=== PATIENT | male | born 1970 ===

== ENCOUNTER 2016-11-06 10:23 | Emergency (ER) | payer OTHER ==
[2016-11-06 10:28] VITALS: BP 156/76; PULSE 75; TEMP 97; O2SAT 98; BMI 28.2
[2016-11-06 10:51] VITALS: RESP 19
[2016-11-06] MEDS ORDERED: Piperacillin/Tazobact 3.375 GM in Sodium Chloride 0.9% 100 ML IV STA (11:10)
--- NOTE | 2016-11-06 11:11 | ED PDOC ---
Lower Extremity Pain/Injury Time Seen by Provider: 11/06/16 10:52 Chief Complaint (Nursing): Trauma Chief Complaint (Provider): Foot pain History Per: Patient Additional Complaint(s): 45 yo male, no PMH, presents to ED with complaint sof right foot pain, swelling and redness, worsening over the last 3-4 days. Pt notes tactile fever last night. Pt reports that a piece of wood fell onto his foot 6 days ago. pt. is been self medicated himself w/ ampicillin that he has at home w/no relief. afebrile.at this time. Past Medical History Reviewed: Nursing Documentation, Vital Signs Vital Signs: Last Vital Signs Temp 97 F L 11/06/16 10:46 Pulse 75 11/06/16 10:46 Resp 19 11/06/16 10:46 BP 156/76 H 11/06/16 10:46 Pulse Ox 98 11/06/16 10:46 - Medical History PMH: No Chronic Diseases - Surgical History Surgical History: No Surg Hx - Family History Family History: States: No Known Family Hx - Living Arrangements Living Arrangements: With Family - Home Medications Home Medications: Ambulatory Orders Medication Instructions Recorded Amoxicillin/Clavulanate [Augmentin 1 tab PO BID #14 tab 11/06/16 875 MG-125 MG] - Allergies Allergies/Adverse Reactions: Allergies Allergy/AdvReac Type Severity Reaction Status Date / Time No Known Allergies Allergy Verified 11/06/16 10:46 Review of Systems ROS Statement: Except As Marked, All Systems Reviewed And Found Negative Musculoskeletal: Positive for: Foot Pain Skin: Positive for: Lesions Physical Exam - Reviewed Nursing Documentation Reviewed: Yes Vital Signs Reviewed: Yes - Physical Exam Appears: Positive for: Well, Non-toxic, No Acute Distress Head Exam: Positive for: ATRAUMATIC, NORMAL INSPECTION, NORMOCEPHALIC Skin: Positive for: Normal Color, Warm, DRY Eye Exam: Positive for: EOMI, Normal appearance, PERRL ENT: Positive for: Normal ENT Inspection Neck: Positive for: Normal, Painless ROM Cardiovascular/Chest: Positive for: Regular Rate, Rhythm Respiratory: Positive for: CNT, Normal Breath Sounds Gastrointestinal/Abdominal: Positive for: Normal Exam, Bowel Sounds, Soft Back: Positive for: Normal Inspection Extremity: Positive for: Normal ROM, Tenderness, Swelling, Other (Erythema with streaking noted. (+) puruelent material draining from scabbed over lesions between 3-4th digits. ) Neurologic/Psych: Positive for: Alert, Oriented - Laboratory Results Result Diagrams: 11/06/16 11:25 11/06/16 11:25 - ECG O2 Sat by Pulse Oximetry: 98 Medical Decision Making Medical Decision Making: IV access estblished and treatment initiated with IV Vanco and Zosyn after Cultures/diagnostics obtained. Foot XR: NAd, as read by LYNNETTE labs resulted and reviewed with Pt who demonstrated full understanding. Podiatry consult obtained, see note. Disposition - Clinical Impression Clinical Impression: Cellulitis - Patient ED Disposition Is Patient to be Admitted: No - Disposition Referrals: Provider TBD, [Primary Care Provider] - Podiatry Clinic [Outside] Disposition: Routine/Home Disposition Time: 15:35 Condition: STABLE Prescriptions: Amoxicillin/Clavulanate [Augmentin 875 MG-125 MG] 1 tab PO BID #14 tab Instructions: Cellulitis (ED)
[2016-11-06] MEDS ORDERED: Piperacillin/Tazobact 3.375 gm Inj IVPB ONE (11:14)
[2016-11-06] MEDS ORDERED: Vancomycin 1 g Inj ONE (11:15)
[2016-11-06 11:34] LABS: BASO % 0.7 % (0.0-2.0); EOS # 0.1 K/uL (0.0-0.7); EOS % 1.2 % (0.0-4.0); HEMATOCRIT 42.7 % (35.0-51.0); LYMPH # 1.7 K/uL (1.0-4.3); LYMPH % 24.9 % (20.0-40.0); MEAN CELL VOLUME 87.8 fl (80.0-94.0); MEAN CORPUSCULAR HEMOGLOBIN 29.6 pg (27.0-31.0); MEAN CORPUSCULAR HGB CONC 33.7 g/dL (33.0-37.0); MEAN PLATELET VOLUME 7.7 fl (7.2-11.7); MONO # 0.4 K/uL (0.0-0.8); MONO % 5.9 % (0.0-10.0); NEUT # 4.5 K/uL (1.8-7.0); NEUT % 67.3 % (50.0-75.0); RED CELL DISTRIBUTION WIDTH 13.6 % (11.5-14.5); WHITE BLOOD COUNT 6.7 K/uL (4.8-10.8)
--- NOTE | 2016-11-06 11:46 | CP.PCM.CON ---
History of Present Illness - History of Present Illness History of Present Illness: 45 y/o male seen at bedside in ED for an open lesion in 3rd interspace of the right foot. Pt states that the injury occured 4 days ago. Pt states that when he was working he dropped a 4x4 wood on his foot. Pt states that since then the pain and redness has increased. Pt states that his lesions is starting to worst overtime. Pt denies of taking any pain medications. Pt states that he took ampicilin from his but did not help him. Pt denies of any recent F/N/V/C/ SOB PMHx: None PSHx: None Allergies: N.K.D.A Medications: none SHx: no smoking, no OH use, no illicit drug use Review of Systems - Constitutional Constitutional: As Per HPI Past Patient History - Infectious Disease Hx of Infectious Diseases: None - Past Social History Smoking Status: Never Smoked - PSYCHIATRIC Hx Substance Use: No - SURGICAL HISTORY Hx Surgeries: Yes Meds Home Medications: Home Medication List Medication Instructions Recorded Confirmed Type Amoxicillin/Clavulanate [Augmentin 1 tab PO BID #14 tab 11/06/16 Rx 875 MG-125 MG] Allergies/Adverse Reactions: Allergies Allergy/AdvReac Type Severity Reaction Status Date / Time No Known Allergies Allergy Verified 11/06/16 10:46 - Medications Medications: Current Medications Vancomycin HCl 1 gm/ Sodium (Chloride) 250 mls @ 166.667 mls/hr IV STAT STA Stop: 11/06/16 12:39 Last Admin: 11/06/16 11:40 Dose: 166.667 mls/hr Piperacillin Sod/Tazobactam (Sod 3.375 gm/ Sodium Chloride) 100 mls @ 100 mls/ hr IV STAT STA Stop: 11/06/16 12:09 Physical Exam - Constitutional Appears: Well, Non-toxic, No Acute Distress - Extremities Exam Additional comments: Right foot focused: VASC: DP/PT pulses are palpable 2/4, Temp. gradient: warm to warm, [employer]: < 3 sec x 5, no varicosities, pedal hair present, mild non-pitting edema noted DERM: Open lesion on the medial aspect of the 4th digit extending in the 3rd interspace, Erythema on the dorsum of the foot extending proximally to the neck of the metatarsals, no malodor, purulent drainage noted from the lesion with mild sanguineous drainage, no probe to bone NEURO: Grossly intact ORTHO: pain upon palpation of the 3rd interspace, pt able to move his digits on active ROM with mild tenderness - Neurological Exam Neurological exam: Alert, Oriented x3 Results - Vital Signs Recent Vital Signs: Last Vital Signs Temp 97 F L 11/06/16 10:46 Pulse 75 11/06/16 10:46 Resp 19 11/06/16 10:46 BP 156/76 H 11/06/16 10:46 Pulse Ox 98 11/06/16 11:12 - Labs Result Diagrams: 11/06/16 11:25 11/06/16 11:25 Assessment & Plan - Assessment and Plan (Free Text) Assessment: 45 y/o male seen at bedside in ED for open lesion in the 3rd interspace of the right foot secondary to trauma with pedal cellulitis Plan: Pt evaluated and chart reviewed Pt discussed in details with attending Dr. Olivares X-rays, vitals and labs reviewed (pt is afebrile, WBC:6.7) Bedside drainage of the lesion performed - approx. 0.5 cc of pus expressed Wound bed copiously flushed with normal sterile saline Lesion dressed using betadine, gauze, and kurlix Pt tolerated the procedure well Surgical shoe dispensed and pt educated to wear while weightbearing to the R foot Rx: Augmentin 875mg-125mg PO BID Advised pt to changed dressing daily with gauze and to monitor for worsening of symptoms Advised pt to return to ED immediately should problems worsen Advised to f/u in podiatry clinic next week. - Date & Time Date: 11/06/16 Time: 12:00
[2016-11-06 11:53] LABS: ALKALINE PHOSPHATASE 120 U/L (38-126); ALT/SGPT 63 U/L (21-72); AST/SGOT 39 U/L (17-59); BILIRUBIN,TOTAL 0.7 mg/dl (0.2-1.3); BLOOD UREA NITROGEN 13 mg/dl (9-20); CALCIUM 9.5 mg/dL (8.4-10.2); CARBON DIOXIDE 25 mmol/L (22-30); CHLORIDE 104 mmol/L (98-107); GFR AFRICAN-AMERICAN > 60; GLUCOSE,RANDOM 99 mg/dL (75-110); SODIUM 140 mmol/l (132-148); TOTAL PROTEIN 8.8 G/DL (6.3-8.2)
[2016-11-06 11:54] LABS: ALB/GLOB RATIO 1.1 (1.0-2.1); POTASSIUM 4.7 MMOL/L (3.6-5.0)
[2016-11-06] MEDS ORDERED: Povidone Iodine Topical 10% Sol ONE (11:58)
--- NOTE | 2016-11-06 14:59 | RAD ---
PROCEDURE: Right Foot Radiographs. HISTORY: r/o osteo COMPARISON: None. FINDINGS: BONES: No radiographic findings of acute osteomyelitis. JOINTS: Normal. SOFT TISSUES: Stable tissue swelling 1st digit. OTHER FINDINGS: None. IMPRESSION: Soft tissue swelling without acute articular or osseous abnormality. There is no radiographic evidence of acute osteomyelitis.
== END 2016-11-06 14:36 | disposition home or self-care (01) ==
LOC: H.ER 10:23 → SUPCPDRO 10:23 → H.ER 14:36
DX: L03.115 Cellulitis of right lower limb (principal); W20.8XXA Other cause of strike by thrown, projected or falling object, initial encounter; Y93.9 Activity, unspecified

== ENCOUNTER 2017-07-12 06:50 | Emergency (ER) | payer OTHER ==
[2017-07-12 06:55] VITALS: BMI 28.1
[2017-07-12 07:26] VITALS: BP 120/65; PULSE 70; RESP 16; TEMP 98; O2SAT 97
--- NOTE | 2017-07-12 07:50 | ED PDOC ---
HPI: General Adult Time Seen by Provider: 07/12/17 07:12 Chief Complaint (Nursing): Abnormal Skin Integrity Chief Complaint (Provider): Bumps on Skull History Per: Patient History/Exam Limitations: no limitations Onset/Duration Of Symptoms: Other (x1 month) Have you had recent travel within the past 21 days to any of the following countries: [place], [place], [place] or [place]?: No Current Symptoms Are (Timing): Still Present Pain Scale Rating Of: 0 Additional Complaint(s): 46 year old male presents to the ED with bumps on his skull. The patient states that he has had these bumps for about 1 month or maybe longer. He reports that the bumps are not painful or itchy. Denies drainage. Denies any other medical problems. Patient reports that he has no primary care and therefore has not been able to see anyone for treatment of the bumps. Past Medical History Reviewed: Historical Data, Nursing Documentation, Vital Signs Vital Signs: Last Vital Signs Temp 98.0 F 07/12/17 07:00 Pulse 70 07/12/17 07:00 Resp 16 07/12/17 07:00 BP 120/65 07/12/17 07:00 Pulse Ox 97 07/12/17 07:55 - Medical History PMH: No Chronic Diseases - Surgical History Surgical History: No Surg Hx - Family History Family History: States: Unknown Family Hx - Social History Current smoker - smoking cessation education provided: No Ex-Smoker (has not smoked in the last 12 months): No Alcohol: None Drugs: Denies - Home Medications Home Medications: Ambulatory Orders Medication Instructions Recorded Amoxicillin/Clavulanate [Augmentin 1 tab PO BID #14 tab 11/06/16 875 MG-125 MG] Bacitracin/Neomycin/Polymyxin 1 oin TP BID #1 tube 07/12/17 [Triple Antibiotic] - Allergies Allergies/Adverse Reactions: Allergies Allergy/AdvReac Type Severity Reaction Status Date / Time No Known Allergies Allergy Verified 11/06/16 10:46 Review of Systems ROS Statement: Except As Marked, All Systems Reviewed And Found Negative Constitutional: Positive for: Other (Bumps on skull) Physical Exam - Reviewed Nursing Documentation Reviewed: Yes Vital Signs Reviewed: Yes - Physical Exam Appears: Positive for: Non-toxic, No Acute Distress Head Exam: Positive for: ATRAUMATIC, NORMAL INSPECTION (2 inch area on occipital skull and border of hairline of what looks like a keloid; No tenderness; No vesicles: No discharge.), NORMOCEPHALIC Skin: Positive for: Normal Color, Warm, Dry. Negative for: Rash Eye Exam: Positive for: Normal appearance Neurologic/Psych: Positive for: Alert, Oriented - ECG O2 Sat by Pulse Oximetry: 97 (RA) Pulse Ox Interpretation: Normal Medical Decision Making Medical Decision Makin Initial Impression 46 year old male presenting with Keloid Initial Plan: * Reevaluating 739 Patient will be discharged home with prescription for steroids and antibacterial cream and advised to follow up with a abrasive grader. ___ Documented by Francie Fontaine acting as a scribe for Lauryn Quintana MD. All medical record entries made by the Scribe were at my direction and personally dictated by me. I have reviewed the chart and agree that the record accurately reflects my personal performance of the history, physical exam, medical decision making, and the department course for this patient. I have also personally directed, reviewed, and agree with the discharge instructions and disposition. Disposition - Clinical Impression Clinical Impression: Keloid, Seborrheic dermatitis of scalp - Patient ED Disposition Is Patient to be Admitted: No Counseled Patient/Family Regarding: Studies Performed, Need For Followup, Rx Given - Disposition Referrals: [facility] [Outside] Disposition: Routine/Home Disposition Time: 07:40 Condition: GOOD Additional Instructions: Follow up with your PCP in 2-3 days. Prescriptions: Bacitracin/Neomycin/Polymyxin [Triple Antibiotic] 1 oin TP BID #1 tube Instructions: Seborrheic Dermatitis, Keloids Print Language: SENEGALESE
== END 2017-07-12 08:28 | disposition home or self-care (01) ==
LOC: H.ER 06:50
DX: L21.9 Seborrheic dermatitis, unspecified (principal); L91.0 Hypertrophic scar; Z87.891 Personal history of nicotine dependence

== ENCOUNTER 2018-10-05 09:34 | Emergency (ER) | payer OTHER ==
[2018-10-05 09:37] VITALS: BMI 29.1
[2018-10-05 09:38] VITALS: BP 137/74; PULSE 74; RESP 18; TEMP 98.9; O2SAT 99
--- NOTE | 2018-10-05 10:51 | ED PDOC ---
Lower Extremity Pain/Injury Time Seen by Provider: 10/05/18 10:32 Chief Complaint (Nursing): Lower Extremity Problem/Injury Chief Complaint (Provider): knee swelling right History Per: Patient (47 y/o male here with right knee swelling noted after working with bent knee on floor repetitively. Also notes he had a mild injury 4 days ago with small blunt trauma to lateral aspect of knee. Denies any fevers/chills. States he is able to flex and extend without difficulty.) Past Medical History Reviewed: Historical Data, Nursing Documentation, Vital Signs Vital Signs: Last Vital Signs Temp 98.9 F 10/05/18 09:37 Pulse 74 10/05/18 09:37 Resp 18 10/05/18 09:37 BP 137/74 10/05/18 09:37 Pulse Ox 99 10/05/18 09:37 Primary Care Provider: FAMILY PROVIDER,NO - Family History Family History: States: Unknown Family Hx - Home Medications Home Medications: Ambulatory Orders Medication Instructions Recorded Amoxicillin/Clavulanate [Augmentin 1 tab PO BID #14 tab 11/06/16 875 MG-125 MG] Bacitracin/Neomycin/Polymyxin 1 oin TP BID #1 tube 07/12/17 [Triple Antibiotic] Naproxen 375 mg PO Q8 PRN #21 tablet 10/05/18 - Allergies Allergies/Adverse Reactions: Allergies Allergy/AdvReac Type Severity Reaction Status Date / Time No Known Allergies Allergy Verified 11/06/16 10:46 Review of Systems ROS Statement: Except As Marked, All Systems Reviewed And Found Negative Musculoskeletal: Positive for: Other (knee swelling.) Physical Exam - Reviewed Nursing Documentation Reviewed: Yes Vital Signs Reviewed: Yes - Physical Exam Appears: Positive for: Well, Non-toxic, No Acute Distress Head Exam: Positive for: ATRAUMATIC, NORMAL INSPECTION, NORMOCEPHALIC Skin: Positive for: Normal Color, Warm, DRY Eye Exam: Positive for: EOMI, Normal appearance, PERRL ENT: Positive for: Normal ENT Inspection Neck: Positive for: Normal, Painless ROM Cardiovascular/Chest: Positive for: Regular Rate, Rhythm Respiratory: Positive for: CNT, Normal Breath Sounds Gastrointestinal/Abdominal: Positive for: Normal Exam, Soft Back: Positive for: Normal Inspection Extremity: Positive for: Normal ROM, Other (anterior patellar swelling noted. No erythema noted. Able to flex and extend without difficulty. No effusion noted.) Neurological/Psych: Positive for: Awake, Alert, Normal Tone - ECG O2 Sat by Pulse Oximetry: 99 - Progress ED Course And Treament: XRY OF KNEE RIGHT : NO ACUTE ABNORMALITY GIVEN DEZ WRAP Disposition - Clinical Impression Clinical Impression: Bursitis, prepatellar, right - Patient ED Disposition Is Patient to be Admitted: No - Disposition Referrals: [facility] [Outside] Disposition: Routine/Home Disposition Time: 11:10 Condition: FAIR Prescriptions: Naproxen 375 mg PO Q8 PRN #21 tablet PRN Reason: Pain, Moderate (4-7) Instructions: Prepatellar Bursitis Forms: [facility] ED School/Work Excuse Print Language: [id number]
--- NOTE | 2018-10-05 11:17 | RAD ---
Date of service: 10/05/2018 PROCEDURE: Right Knee Radiographs. HISTORY: injury knee COMPARISON: None. TECHNIQUE: 2 views obtained. FINDINGS: BONES: No acute fracture or destructive bony lesion identified. JOINTS: No subluxation or dislocation identified. JOINT EFFUSION: None. OTHER FINDINGS: None. IMPRESSION: Unremarkable radiographs of the right knee.
== END 2018-10-05 11:30 | disposition home or self-care (01) ==
LOC: H.ER 09:34 → SUPCPDRO 09:34 → H.ER 11:30
DX: M70.41 Prepatellar bursitis, right knee (principal)